=== PATIENT | female | born 1970 ===

== ENCOUNTER 2022-01-23 09:53 | Observation (INO) | payer OTHER ==
[2022-01-23 10:17] VITALS: RESP 18
--- NOTE | 2022-01-23 10:20 | CT ---
EXAMINATION TYPE: CT brain wo con for TPA DATE OF EXAM: 01/23/2022 COMPARISON: None INDICATION: confusion DLP: 1074.6 mGycm, Automated exposure control for dose reduction was used. CONTRAST: None CT of the brain is performed utilizing 3 mm thick sections through the posterior fossa and 3 mm thick sections through the remaining calvarium. Study is performed within 24 hours of arrival to the hosp ital. No abnormal hyperdensity is present to suggest an acute intracranial hemorrhage. No mass lesion is evident. No acute infarcts are evident. Some subtle increased density may be within the right middle cerebral artery. There is subtle asymmetry within the gantry. This may be similar in density to the left middl e cerebral artery. Correlate with the clinical symptoms. Ventricles and sulci are appropriate for the patient age. Paranasal sinuses and mastoid air cells within the [id number]-[id number] are clear. IMPRESSIONS: 1. Some subtle increased density within the right middle cerebral artery is not entirely excluded. However, this may be artifact with a somewhat similar appearance on the left side. Correlate with pat stanleynt's clinical symptoms. Report was called to emergency room physician by Dr. Dimas by telephone 1 016 hours 01/23/2022. 2. No additional areas suspicious for acute intracranial process.
--- NOTE | 2022-01-23 10:37 | CT ---
EXAMINATION TYPE: CT angio head neck DATE OF EXAM: 01/23/2022 HISTORY: confusion COMPARISON: CT brain same date CT DLP: 479.2 mGycm. Automated Exposure Control for Dose Reduction was Utilized. TECHNIQUE: CTA scan of the neck is performed with IV Contrast, patient injected with 65 mL of Isovue 370, axial images are obtained, coronal and sagittal reformatted images are reviewed. Three-D recons tructed images are created on an independent workstation and reviewed. Source images are reviewed. FINDINGS: Carotid/Vascular Structures: There is a three-vessel arch. Common carotid arteries bifurcate into int ernal and external carotid arteries. Very minimal plaquing may be present bilaterally without signifi cant flow-limiting stenosis. Vertebral arteries are codominant. Internal carotid arteries and vertebr al arteries are patent to the skull base. Cervical of [place]: Vertebral basilar system appears normal. Posterior cerebral vasculature is unrema rkable. Internal carotid arteries bifurcate normally into A1 and M1 segments. Attention is paid to th e M1 segments. No filling defects or abrupt cut off are evident. M2 segments as visualized appear unr emarkable. A2 segments are normal. The anterior communicating artery is patent. Posterior communicati ng arteries are not identified. Other: Note is made of degenerative disc changes through the cervical spine. No obvious spinal canal stenosis is evident. There is severe right C3-4 foraminal stenosis. Severe left C4-5 C5-6 and C6-7 fo raminal stenosis is present. IMPRESSION: 1. No flow-limiting stenosis bilateral carotid bifurcations. 2. Normal [place] of [place] 3. Severe foraminal stenosis greater on the left. NASCET criteria was used in interpretation of this exam?
--- NOTE | 2022-01-23 11:01 | XR ---
EXAMINATION TYPE: XR chest 2V DATE OF EXAM: 01/23/2022 COMPARISON: NONE HISTORY: Shortness of breath TECHNIQUE: Frontal and lateral views of the chest are obtained. FINDINGS: Scattered senescent parenchymal changes noted. Hyperinflation compatible with COPD. No evidence for infiltrate. No evidence for atelectasis. Heart size is stable. Mediastinal structures are stable and grossly unremarkable. No evidence for hilar prominence. Degenerative changes dorsal spine. IMPRESSION: 1. No evidence for acute pulmonary disease.
[2022-01-23 11:19] LABS: Basophils % (A) 0 %; Eosinophils # (A) 0.1 k/uL (0-0.7); Eosinophils % (A) 1 %; HCT 37.7 % (34.0-46.0); HGB 12.3 gm/dL (11.4-16.0); Lymphocytes # (A) 0.9 k/uL (1.0-4.8); Lymphocytes % (A) 13 %; MCH 30.9 pg (25.0-35.0); MCHC 32.6 g/dL (31.0-37.0); MCV 94.8 fL (80.0-100.0); Mean Platelet Volume 7.5; Monocytes # (A) 0.5 k/uL (0-1.0); Monocytes % (A) 7 %; Neutrophils # (A) 5.7 k/uL (1.3-7.7); Neutrophils % (A) 78 %; Platelet Count 238 k/uL (150-450); RBC 3.97 m/uL (3.80-5.40); RDW 12.6 % (11.5-15.5); WBC 7.3 k/uL (3.8-10.6)
[2022-01-23 11:30] LABS: ALT 13 U/L (4-34); AST 20 U/L (14-36); African American GFR (CKD) >90 (>60 ml/min/1.73 sqM); Albumin 4.4 g/dL (3.5-5.0); Alkaline Phosphatase 100 U/L (38-126); Anion Gap 13 mmol/L; Blood Urea Nitrogen 12 mg/dL (7-17); Calcium 9.4 mg/dL (8.4-10.2); Carbon Dioxide 24 mmol/L (22-30); Chloride 99 mmol/L (98-107); Glucose 95 mg/dL (74-99); Non-African American GFR(CKD) >90 (>60 ml/min/1.73 sqM); Potassium 3.8 mmol/L (3.5-5.1); Sodium 136 mmol/L (137-145); Total Bilirubin 0.7 mg/dL (0.2-1.3); Total Protein 7.2 g/dL (6.3-8.2)
[2022-01-23 11:46] LABS: Partial Thromboplastin Time 25.5 sec (22.0-30.0); Prothrombin Time 10.6 sec (9.0-12.0)
--- NOTE | 2022-01-23 13:14 | ED ---
Neuro HPI - General Chief Complaint: Neuro Symptoms/Deficit Stated Complaint: poss stroke Time Seen by Provider: 01/23/22 09:56 Source: patient, EMS, RN notes reviewed Mode of arrival: EMS Limitations: no limitations - History of Present Illness Is the patient presenting with stroke symptoms?: Yes Onset/Timin -: hour(s) Initial Comments: 51-year-old female with a history of anxiety presents from her place of employment by EMS with complaints of apparent new onset expressive aphasia which started about 1 hour prior to arrival. No headache no dizziness no blurry vision no nausea no vomiting no focal deficits to the upper or lower extremities. Her paramedics patient cannot answer questions very well though she did seem to understand. No trauma reported question whether this had occurred before. - Related Data Home Medications: Home Medications Medication Instructions Recorded Confirmed QUEtiapine [SEROquel] 50 mg PO HS 01/23/22 01/23/22 Venlafaxine HCl ER [Effexor Xr] 37.5 mg PO DAILY 01/23/22 01/23/22 valACYclovir HCL [Valtrex] 500 mg PO DAILY 01/23/22 01/23/22 Allergies/Adverse Reactions: Allergies Allergy/AdvReac Type Severity Reaction Status Date / Time bee venom protein (honey bee) Allergy Unknown Verified 01/23/22 12:46 Review of Systems ROS Statement: Those systems with pertinent positive or pertinent negative responses have been documented in the HPI. ROS Other: All systems not noted in ROS Statement are negative. General Exam - General Exam Comments Initial Comments: This a well-developed well-nourished awake alert anxious appearing female Limitations: no limitations General appearance: alert, anxious Head exam: Present: atraumatic, normocephalic, normal inspection Eye exam: Present: normal appearance, PERRL, EOMI. Absent: scleral icterus, conjunctival injection, periorbital swelling ENT exam: Present: normal exam, mucous membranes moist Neck exam: Present: normal inspection, full ROM, other (No stridor JVD or bruits). Absent: tenderness, meningismus, lymphadenopathy Respiratory exam: Present: normal lung sounds bilaterally. Absent: respiratory distress, wheezes, rales, rhonchi, stridor Cardiovascular Exam: Present: normal rhythm, tachycardia, normal heart sounds. Absent: systolic murmur, diastolic murmur, rubs, gallop, clicks GI/Abdominal exam: Present: soft, normal bowel sounds. Absent: distended, tenderness, guarding, rebound, rigid, bruit, pulsatile mass Extremities exam: Present: normal inspection, full ROM, normal capillary refill. Absent: tenderness, pedal edema, joint swelling, calf tenderness Back exam: Present: normal inspection Neurological exam: Present: alert, oriented X3, CN II-XII intact, other (Patient does seem to be demonstrating expressive aphasia). Absent: motor sensory deficit Psychiatric exam: Present: normal affect, normal mood Skin exam: Present: warm, dry, intact, normal color. Absent: rash Stroke MDM - Lab Data Result diagrams: 01/23/22 09:58 01/23/22 09:58 Lab Results 01/23/22 01/23/22 01/23/22 Range/Units 09:58 09:58 09:58 WBC 7.3 (3.8-10.6) k/uL RBC 3.97 (3.80-5.40) m/uL Hgb 12.3 (11.4-16.0) gm/dL Hct 37.7 (34.0-46.0) % MCV 94.8 (80.0-100.0) fL MCH 30.9 (25.0-35.0) pg MCHC 32.6 (31.0-37.0) g/dL RDW 12.6 (11.5-15.5) % Plt Count 238 (150-450) k/uL MPV 7.5 Neutrophils % 78 % Lymphocytes % 13 % Monocytes % 7 % Eosinophils % 1 % Basophils % 0 % Neutrophils # 5.7 (1.3-7.7) k/uL Lymphocytes # 0.9 L (1.0-4.8) k/uL Monocytes # 0.5 (0-1.0) k/uL Eosinophils # 0.1 (0-0.7) k/uL Basophils # 0.0 (0-0.2) k/uL PT 10.6 (9.0-12.0) sec INR 1.0 (<1.2) APTT 25.5 (22.0-30.0) sec Sodium 136 L (137-145) mmol/L Potassium 3.8 (3.5-5.1) mmol/L Chloride 99 (98-107) mmol/L Carbon Dioxide 24 (22-30) mmol/L Anion Gap 13 mmol/L BUN 12 (7-17) mg/dL Creatinine 0.63 (0.52-1.04) mg/dL Est GFR (CKD-EPI)AfAm >90 (>60 ml/min/1.73 sqM) Est GFR (CKD-EPI)NonAf >90 (>60 ml/min/1.73 sqM) Glucose 95 (74-99) mg/dL Calcium 9.4 (8.4-10.2) mg/dL Total Bilirubin 0.7 (0.2-1.3) mg/dL AST 20 (14-36) U/L ALT 13 (4-34) U/L Alkaline Phosphatase 100 (38-126) U/L Troponin I (0.000-0.034) ng/mL Total Protein 7.2 (6.3-8.2) g/dL Albumin 4.4 (3.5-5.0) g/dL 01/23/22 Range/Units 09:58 WBC (3.8-10.6) k/uL RBC (3.80-5.40) m/uL Hgb (11.4-16.0) gm/dL Hct (34.0-46.0) % MCV (80.0-100.0) fL MCH (25.0-35.0) pg MCHC (31.0-37.0) g/dL RDW (11.5-15.5) % Plt Count (150-450) k/uL MPV Neutrophils % % Lymphocytes % % Monocytes % % Eosinophils % % Basophils % % Neutrophils # (1.3-7.7) k/uL Lymphocytes # (1.0-4.8) k/uL Monocytes # (0-1.0) k/uL Eosinophils # (0-0.7) k/uL Basophils # (0-0.2) k/uL PT (9.0-12.0) sec INR (<1.2) APTT (22.0-30.0) sec Sodium (137-145) mmol/L Potassium (3.5-5.1) mmol/L Chloride (98-107) mmol/L Carbon Dioxide (22-30) mmol/L Anion Gap mmol/L BUN (7-17) mg/dL Creatinine (0.52-1.04) mg/dL Est GFR (CKD-EPI)AfAm (>60 ml/min/1.73 sqM) Est GFR (CKD-EPI)NonAf (>60 ml/min/1.73 sqM) Glucose (74-99) mg/dL Calcium (8.4-10.2) mg/dL Total Bilirubin (0.2-1.3) mg/dL AST (14-36) U/L ALT (4-34) U/L Alkaline Phosphatase (38-126) U/L Troponin I <0.012 (0.000-0.034) ng/mL Total Protein (6.3-8.2) g/dL Albumin (3.5-5.0) g/dL - NIH Stroke Scale 1a. Level of Consciousness: (0) alert 1b. LOC Questions: (0) answers correctly 1c. LOC Commands: (0) performs tasks correctly 2. Best Gaze: (0) normal 3. Visual: (0) no visual loss 4. Facial Palsy: (0) normal symmetrical movement 5a. Motor Arm Left: (0) no drift 5b. Motor Arm Right: (0) no drift 6a. Motor Leg Left: (0) no drift 6b. Motor Leg Right: (0) no drift 7. Limb Ataxia: (0) absent 8. Sensory: (0) normal 9. Best Language: (1) mild/moderate aphasia 10. Dysarthria: (0) normal 11. Extinction/Inattention: (0) no abnormality - Thrombolytic Inclusion/Exclusion Thrombolytic Inclusion Criteria: Symptom Onset < 4.5 h - EKG Data -: EKG Interpreted by Me EKG shows normal: sinus rhythm, axis, intervals, QRS complexes, ST-T waves (Sinus rhythm of 92. Interval 187 QRS worship 86 QT since QTC 335/405 st-t wave changes) Past Medical History History of Any Multi-Drug Resistant Organisms: None Reported Past Psychological History: Anxiety Smoking Status: Current every day smoker Past Alcohol Use History: None Reported Past Drug Use History: None Reported Course Vital Signs 01/23/22 10:13 Temperature 98.3 F Pulse Rate 105 H Respiratory 18 Rate Blood Pressure 154/76 O2 Sat by Pulse 98 Oximetry - Reevaluation(s) Reevaluation #1: 01/23/22 13:15 Reevaluation the patient finds he does seem to be improving. I did discuss case with Dr. hackett CAT scans were all negative patient is not a TPA candidate at this time Critical Care Time Critical Care Time: Yes Total Critical Care Time: 37 Critical Care Time: Critical care time includes initial presentation with history physical labs x- rays multiple reevaluation the patient. Discussion with the interventional neurologist as well as discussed with the admitting physician admission orders documentation the above Disposition Clinical Impression: Transient cerebral ischemia Disposition: ADMITTED IP TO THIS [facility] Condition: Stable Referrals: Nonstaff,Physician [Primary Care Provider] - 1-2 days Decision Date: 01/23/22 Decision Time: 12:30
[2022-01-23] MEDS ORDERED: SODIUM CHLORIDE 0.9% 1,000 ML IV SCH (13:30)
[2022-01-23] MEDS ORDERED: CLOPIDOGREL 75 MG TAB PO SCH (14:30)
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
[2022-01-23] MEDS ORDERED: HEPARIN SODIUM,PORCINE/PF 5,000 UNIT/0.5 ML SYRINGE SQ SCH (16:00)
[2022-01-23] MEDS ORDERED: QUEtiapine 50 MG TAB PO SCH (21:00)
[2022-01-23] MEDS ORDERED: ATORVASTATIN 40 MG TAB PO SCH (21:00)
[2022-01-23 22:12] VITALS: BP 145/74; PULSE 103; TEMP 98.2
--- NOTE | 2022-01-24 | HP ---
HISTORY AND PHYSICAL CHIEF COMPLAINT: Dysphasia. HISTORY OF PRESENT ILLNESS: This 51-year-old woman with a past medical history of anxiety, being followed by _the patient is complaining of difficulty speaking. The stroke code was done. CT brain and angio CT did not show acute abnormality. The patient did not have any difficulty in walking. The patient was admitted for further evaluation for possible stroke workup and followup. PAST MEDICAL HISTORY: History of anxiety, reviewed. HOME MEDICATIONS: Once again reviewed, include . Dose and rest of medication noted. ALLERGIES: Bee venom. FAMILY HISTORY: No history of heart disease or strokes. SOCIAL HISTORY: History of smoking. REVIEW OF SYSTEMS: A 14-point review of systems is negative as mentioned earlier. PHYSICAL EXAMINATION: VITAL SIGNS: Pulse 105, blood pressure NTD, respirations 18. HEENT: Conjunctivae normal. NECK: No JVD. CARDIOVASCULAR: No murmurs. RESPIRATION: scattered rhonchi. ABDOMEN: Soft. LEGS: No edema. NERVOUS SYSTEM: The patient has dysphasia. Otherwise, no focal deficit noted. Gait, not tested. No signs of cerebellar incoordination. SKIN: No ulcers JOINTS: No active deforming arthropathy. LABORATORY DATA: Reviewed. CBC within normal limits. SodiumN ASSESSMENT: 1. Expressive aphasia, possible acute stroke. 2. Anxiety state. 3. History of nicotine dependence. 4. Hypertension. RECOMMENDATIONS AND DISCUSSION: This 51-year-old woman, presented with multiple complex medical issues. We will monitor the patient closely. We will obtain the complete stroke workup, including 2D echo, neuro checks, Neurology evaluation, Cardiology and Neurology consultations. Prognosis guarded because of multiple complex medical issues. Further recommendations to follow. MMODL / IJN: [id number] / MTDD
--- NOTE | 2022-01-24 06:12 | DS ---
DISCHARGE SUMMARY FINAL DIAGNOSIS: Expressive dysphasia, possibly acute stroke, possible anxiety. DISCHARGE DISPOSITION: The patient left the hospital against medical advice. HISTORY OF PRESENT ILLNESS: This 51-year-old woman with a past medical history of multiple medical issues, admitted with expressive aphasia. Acute stroke was suspected. Neurology consulted, stroke workup is underway, however, apparently the patient eloped from the ER. Please refer to the staff notes and other notes for further details. Prognosis extremely guarded. MMODL / IJN: [id number] /
[2022-01-24] MEDS ORDERED: ASPIRIN 325 MG TAB PO SCH (09:00)
[2022-01-24] MEDS ORDERED: valACYclovir HCL 500 MG TAB PO SCH (09:00)
[2022-01-24] MEDS ORDERED: VENLAFAXINE HCL ER 37.5 MG CAP PO SCH (09:00)
== END 2022-01-23 16:44 | disposition left against medical advice (07) ==
LOC: EC 09:53 → 3SCARD 13:20
PROVIDERS: ADMIT Hospitalist; ATTEND Hospitalist
DX: R47.02 Dysphasia (principal); F33.9 Major depressive disorder, recurrent, unspecified; F20.9 Schizophrenia, unspecified; F41.9 Anxiety disorder, unspecified; I10 Essential (primary) hypertension; M48.02 Spinal stenosis, cervical region; F17.200 Nicotine dependence, unspecified, uncomplicated; R51.9 Headache, unspecified; Z86.19 Personal history of other infectious and parasitic diseases; Z53.29 Procedure and treatment not carried out because of patient's decision for other reasons; Z79.899 Other long term (current) drug therapy; Z91.030 Bee allergy status
CPT/HCPCS: 99291; 36415; 93005; 93306; 80053; 84443; 84484; 85025; 85610; 85730; 71046; 70496; 70450; 70498; G0378; Q9967